=== PATIENT | female | born 1970 ===

== ENCOUNTER 2024-01-07 07:08 | Day surgery (SDC) | payer BC, OTHER ==
[~2024-01-07] VITALS: Ht 152.4 cm; Wt 54.4 kg
[2024-01-07] MEDS ORDERED: MIDAZOLAM HCL 5 MG/5 ML VIAL ONE (07:25)
[2024-01-07] MEDS ORDERED: MEPERIDINE 100 MG INJ. 100 MG/ML VIAL ONE (07:25)
[2024-01-07 08:14] VITALS: O2SAT 100
[2024-01-07] MEDS ORDERED: DIPHENHYDRAMINE INJ 50 MG/ML VIAL ONE (09:55)
[2024-01-07 16:41] VITALS: BP_SYST 114; PULSE 85; RESP 17
== END 2024-01-07 11:00 | disposition home or self-care (01) ==
LOC: SDS 07:08 → SMU 07:10 → SDS 11:00
PROVIDERS: ATTEND Student in an Organized Health Care Education/Training Program
DX: Z12.11 Encounter for screening for malignant neoplasm of colon (principal); D12.3 Benign neoplasm of transverse colon; K64.8 Other hemorrhoids; K64.4 Residual hemorrhoidal skin tags; E03.9 Hypothyroidism, unspecified; Z79.890 Hormone replacement therapy; Z88.0 Allergy status to penicillin; Z80.0 Family history of malignant neoplasm of digestive organs
CPT/HCPCS: 45385; 88305; J1200; J2175; J2250